=== PATIENT | female | born 1975 | race Caucasian/White ===

== ENCOUNTER 2023-10-09 14:02 | Emergency (ER) | payer SELFPAY ==
[2023-10-09] MEDS: LORazepam 0.5 MG Tab PO ONE (14:52)
== END 2023-10-09 14:55 | disposition home or self-care (01) ==
LOC: CC.ED 14:02
DX: F41.0 Panic disorder [episodic paroxysmal anxiety] (principal); F41.1 Generalized anxiety disorder
CPT/HCPCS: 99283; A9270-GY

== ENCOUNTER 2024-01-29 07:50 | Emergency (ER) | payer SELFPAY ==
[2024-01-29] MEDS: Ketorolac 30 MG/ML SDV ONE (09:08)
[2024-01-29] MEDS: Ketorolac 30 MG/ML SDV IM STA (09:39)
== END 2024-01-29 10:40 | disposition home or self-care (01) ==
LOC: CC.ED 07:50
DX: S83.91XA Sprain of unspecified site of right knee, initial encounter (principal); Z79.899 Other long term (current) drug therapy; W01.0XXA Fall on same level from slipping, tripping and stumbling without subsequent striking against object, initial encounter
CPT/HCPCS: 73562-RT; 96372; 99283; J1885; J3360

== ENCOUNTER 2024-03-07 16:06 | Emergency (ER) | payer SELFPAY ==
[2024-03-07] MEDS: Lidocaine 1% 5 ML VIAL INJECT ONE (16:56)
[2024-03-07] MEDS: Diphtheria,Pertussis(Acell),Tetanus Vaccine 0.5 ML Syringe IM ONE (16:57)
[2024-03-07] MEDS: LORazepam 0.5 MG Tab PO ONE (17:38)
[2024-03-07] MEDS: Ibuprofen 200 MG Tab PO ONE (17:38)
[2024-03-07 18:19] VITALS: BP 141/82; PULSE 86
== END 2024-03-07 18:55 | disposition home or self-care (01) ==
LOC: CC.ED 16:06
DX: S01.81XA Laceration without foreign body of other part of head, initial encounter (principal); Z23 Encounter for immunization; Z88.8 Allergy status to other drugs, medicaments and biological substances; W22.8XXA Striking against or struck by other objects, initial encounter
CPT/HCPCS: 12011; 70450; 90471; 90715; 99283; 99284-25; A9270-GY; J3490

== ENCOUNTER 2024-07-16 22:10 | Emergency (ER) | payer SELFPAY ==
[2024-07-16 22:46] LABS: BASOPHILS ABSOLUTE AUTO 0.04 10^3/uL (0.00-0.50); BASOPHILS PERCENT AUTO 0.7 % (0-1); EOSINOPHILS ABSOLUTE AUTO 0.01 10^3/uL (0.00-1.50); EOSINOPHILS PERCENT AUTO 0.2 % (0-6); HEMATOCRIT 34.3 % (37.0-47.0); HEMOGLOBIN 12.3 g/dL (12.0-16.0); IMMATURE GRAN ABSOLUTE AUTO 0.01 10^3/uL (0.00-0.49); IMMATURE GRAN PERCENT AUTO 0.2 % (0.0-4.9); LYMPHOCYTES ABSOLUTE AUTO 2.08 10^3/uL (0.60-5.00); LYMPHOCYTES PERCENT AUTO 34.9 % (24-44); MEAN CORPUSCULAR HGB CONC 35.9 g/dL (32.0-36.0); MEAN CORPUSCULAR VOLUME 103.3 fL (83.0-97.0); MONOCYTES ABSOLUTE AUTO 0.47 10^3/uL (0.00-1.50); MONOCYTES PERCENT AUTO 7.9 % (0-10); NEUTROPHILS ABSOLUTE AUTO 3.35 x10^3/uL (1.80-8.00); NEUTROPHILS PERCENT AUTO 56.1 % (41-71); PLATELET COUNT,PLT 133 10^3/uL (150-400); RED BLOOD CELL COUNT 3.32 x10^6/uL (4.00-5.50)
[2024-07-16 23:00] LABS: CALCIUM 8.7 mg/dL (8.4-10.1); CREATININE 0.5 mg/dL (0.6-1.0); EST CRCL DRUG DOSING (CG) 124.61 mL/min; POTASSIUM,K 3.2 mEq/L (3.5-5.0)
== END 2024-07-16 23:39 | disposition home or self-care (01) ==
LOC: CC.ED 22:10
DX: S00.03XA Contusion of scalp, initial encounter (principal); F10.120 Alcohol abuse with intoxication, uncomplicated; E03.9 Hypothyroidism, unspecified; N18.9 Chronic kidney disease, unspecified; Z79.899 Other long term (current) drug therapy; Z79.890 Hormone replacement therapy; Y90.8 Blood alcohol level of 240 mg/100 ml or more; Y04.8XXA Assault by other bodily force, initial encounter
CPT/HCPCS: 36415; 70450; 80048; 80307; 85025; 99284

== ENCOUNTER 2024-09-05 16:34 | Observation (INO) | payer MEDICAID ==
[2024-09-05 17:12] LABS: BASOPHILS ABSOLUTE AUTO 0.02 10^3/uL (0.00-0.50); BASOPHILS PERCENT AUTO 0.3 % (0-1); EOSINOPHILS ABSOLUTE AUTO 0.03 10^3/uL (0.00-1.50); EOSINOPHILS PERCENT AUTO 0.5 % (0-6); HEMATOCRIT 33.4 % (37.0-47.0); HEMOGLOBIN 11.3 g/dL (12.0-16.0); IMMATURE GRAN ABSOLUTE AUTO 0.01 10^3/uL (0.00-0.49); IMMATURE GRAN PERCENT AUTO 0.2 % (0.0-4.9); LYMPHOCYTES ABSOLUTE AUTO 1.42 10^3/uL (0.60-5.00); LYMPHOCYTES PERCENT AUTO 22.6 % (24-44); MEAN CORPUSCULAR HEMOGLOBIN 33.7 pg (27.0-32.0); MEAN CORPUSCULAR HGB CONC 33.8 g/dL (32.0-36.0); MEAN CORPUSCULAR VOLUME 99.7 fL (83.0-97.0); MONOCYTES ABSOLUTE AUTO 0.62 10^3/uL (0.00-1.50); MONOCYTES PERCENT AUTO 9.9 % (0-10); NEUTROPHILS ABSOLUTE AUTO 4.17 x10^3/uL (1.80-8.00); NEUTROPHILS PERCENT AUTO 66.5 % (41-71); PLATELET COUNT,PLT 255 10^3/uL (150-400); RED BLOOD CELL COUNT 3.35 x10^6/uL (4.00-5.50); WHITE BLOOD CELL COUNT,WBC 6.3 10^3/uL (4.0-11.0)
[2024-09-05 17:34] LABS: ALBUMIN 2.4 g/dL (3.4-5.0); ALKALINE PHOSPHATASE 311 U/L (46-116); BLOOD UREA NITROGEN,BUN 10 mg/dL (7-18); C-REACTIVE PROTEIN 2.23 mg/dL (<=0.50); CALCIUM 9.7 mg/dL (8.4-10.1); CARBON DIOXIDE,CO2 27 mmol/L (21-32); CHLORIDE,CL 101 mEq/L (98-106); CREATININE 1.2 mg/dL (0.6-1.0); EST CRCL DRUG DOSING (CG) 51.92 mL/min; GLUCOSE RANDOM 106 mg/dL (75-99); POTASSIUM,K 3.6 mEq/L (3.5-5.0); PROTEIN TOTAL,TP 6.1 g/dL (6.4-8.2); SODIUM,NA 139 mEq/L (136-145)
[2024-09-05 17:35] LABS: BILIRUBIN TOTAL 26.4 mg/dL (0.0-1.0); ESTIMATED GFR 55 mL/min (>=60)
[2024-09-05 17:36] LABS: ETHANOL BLOOD MEDICAL < 3 mg/dL (0-3)
[2024-09-05 17:37] LABS: ALANINE AMINOTRANSFERASE,ALT 1881 U/L (12-78); ASPARTATE AMNIOTRANSFERASE,AST 1503 U/L (15-37)
[2024-09-05] MEDS: Iopamidol 755 Mg/ML 100 ML Bottle IVPUSH ONE (17:45)
[2024-09-05] MEDS: Sodium Chloride 0.9% 1,000 ML IV ONE (18:13)
[2024-09-05 18:48] LABS: INR 2.55 (0.92-1.18); PROTHROMBIN TIME 24.8 SEC (9.3-11.3); PTT,PARTIAL THROMBOPLSTIN TIME 41.7 SEC (20.0-30.0)
[2024-09-05] MEDS ORDERED: Ondansetron 4 MG Tab.DIS PO PRN (21:54)
[2024-09-05] MEDS ORDERED: Ondansetron 4 MG/2 ML SDV IV PRN (21:54)
[2024-09-05] MEDS ORDERED: Ibuprofen 200 MG Tab PO PRN (21:54)
[2024-09-05] MEDS: Pantoprazole 40 MG Vial IVPUSH SCH (22:10)
[2024-09-05] MEDS: Sodium Chloride 0.9% 1,000 ML IV SCH (22:11)
[2024-09-06] MEDS: Levothyroxine 100 MCG Tab PO SCH (06:09)
[2024-09-06] MEDS: Levothyroxine 125 MCG Tab PO SCH (06:09)
[2024-09-06 07:34] LABS: BASOPHILS ABSOLUTE AUTO 0.01 10^3/uL (0.00-0.50); BASOPHILS PERCENT AUTO 0.2 % (0-1); EOSINOPHILS ABSOLUTE AUTO 0.06 10^3/uL (0.00-1.50); EOSINOPHILS PERCENT AUTO 1.1 % (0-6); HEMATOCRIT 30.6 % (37.0-47.0); HEMOGLOBIN 10.5 g/dL (12.0-16.0); IMMATURE GRAN ABSOLUTE AUTO 0.01 10^3/uL (0.00-0.49); IMMATURE GRAN PERCENT AUTO 0.2 % (0.0-4.9); LYMPHOCYTES ABSOLUTE AUTO 1.68 10^3/uL (0.60-5.00); LYMPHOCYTES PERCENT AUTO 29.9 % (24-44); MEAN CORPUSCULAR HEMOGLOBIN 34.2 pg (27.0-32.0); MEAN CORPUSCULAR HGB CONC 34.3 g/dL (32.0-36.0); MEAN CORPUSCULAR VOLUME 99.7 fL (83.0-97.0); MONOCYTES ABSOLUTE AUTO 0.64 10^3/uL (0.00-1.50); MONOCYTES PERCENT AUTO 11.4 % (0-10); NEUTROPHILS ABSOLUTE AUTO 3.22 x10^3/uL (1.80-8.00); NEUTROPHILS PERCENT AUTO 57.2 % (41-71); PLATELET COUNT,PLT 231 10^3/uL (150-400); RED BLOOD CELL COUNT 3.07 x10^6/uL (4.00-5.50); WHITE BLOOD CELL COUNT,WBC 5.6 10^3/uL (4.0-11.0)
[2024-09-06] MEDS ORDERED: LEVOTHYROXINE 175 MCG PO SCH (08:00)
[2024-09-06 08:37] LABS: C-REACTIVE PROTEIN 1.84 mg/dL (<=0.50); CALCIUM 9.1 mg/dL (8.4-10.1); CREATININE 0.9 mg/dL (0.6-1.0); EST CRCL DRUG DOSING (CG) 69.23 mL/min; POTASSIUM,K 3.1 mEq/L (3.5-5.0)
[2024-09-06] MEDS: Lactobacillus Rhamnosus GG (Probiotic) Cap PO SCH (08:47)
[2024-09-06] MEDS: Venlafaxine 75 MG Cap.ER PO SCH (08:47)
[2024-09-06] MEDS: buPROPion 100 MG Tab.SR PO SCH (08:47)
[2024-09-06 10:47] LABS: PROTEIN TOTAL,TP 5.5 g/dL (6.4-8.2)
[2024-09-06] MEDS ORDERED: oxyCODONE 5 MG Tab PO PRN (11:39)
[2024-09-06] MEDS: Cefuroxime 250 MG Tab PO ONE (13:23)
[2024-09-06] MEDS: Potassium Chloride 20 MEQ Tab.ER PO ONE (13:24)
[2024-09-06] MEDS ORDERED: Thiamine 100 MG Tab PO SCH (20:00)
[2024-09-06] MEDS ORDERED: Cefuroxime 250 MG Tab PO SCH (20:00)
[2024-09-06] MEDS ORDERED: Multivitamin Tab PO SCH (20:00)
== END 2024-09-06 16:27 | disposition home or self-care (01) ==
LOC: CC.ED 16:34 → UNDOADMOB 20:15 → CC.MS 20:15
PROVIDERS: ADMIT Physician Assistant Medical; ATTEND Physician Assistant Medical
DX: K70.10 Alcoholic hepatitis without ascites (principal); N18.9 Chronic kidney disease, unspecified; E03.9 Hypothyroidism, unspecified; F32.A Depression, unspecified; Z79.890 Hormone replacement therapy; Z79.899 Other long term (current) drug therapy
CPT/HCPCS: 36415; 74177; 76705; 80053; 80074; 80307; 82140; 85025; 85610; 85730; 86140; 96360; 96361; 96374; 99223; 99239; 99285-25; A9270-GY; G0378; J2470; J7030; Q9967

== ENCOUNTER 2024-09-08 13:12 | Emergency (ER) | payer MEDICAID ==
[2024-09-08 13:48] LABS: BASOPHILS ABSOLUTE AUTO 0.02 10^3/uL (0.00-0.50); BASOPHILS PERCENT AUTO 0.2 % (0-1); EOSINOPHILS ABSOLUTE AUTO 0.05 10^3/uL (0.00-1.50); EOSINOPHILS PERCENT AUTO 0.6 % (0-6); HEMATOCRIT 32.6 % (37.0-47.0); HEMOGLOBIN 11.3 g/dL (12.0-16.0); IMMATURE GRAN ABSOLUTE AUTO 0.02 10^3/uL (0.00-0.49); IMMATURE GRAN PERCENT AUTO 0.2 % (0.0-4.9); LYMPHOCYTES ABSOLUTE AUTO 1.95 10^3/uL (0.60-5.00); LYMPHOCYTES PERCENT AUTO 22.5 % (24-44); MEAN CORPUSCULAR HEMOGLOBIN 34.1 pg (27.0-32.0); MEAN CORPUSCULAR HGB CONC 34.7 g/dL (32.0-36.0); MEAN CORPUSCULAR VOLUME 98.5 fL (83.0-97.0); MONOCYTES ABSOLUTE AUTO 0.88 10^3/uL (0.00-1.50); MONOCYTES PERCENT AUTO 10.1 % (0-10); NEUTROPHILS ABSOLUTE AUTO 5.76 x10^3/uL (1.80-8.00); NEUTROPHILS PERCENT AUTO 66.4 % (41-71); PLATELET COUNT,PLT 220 10^3/uL (150-400); RED BLOOD CELL COUNT 3.31 x10^6/uL (4.00-5.50); WHITE BLOOD CELL COUNT,WBC 8.7 10^3/uL (4.0-11.0)
[2024-09-08 14:02] LABS: APPEARANCE,URINE SLIGHTLY CLOUDY (CLEAR); BILIRUBIN,URINE LARGE (NEGATIVE); COLOR,URINE AMBER (YELLOW); GLUCOSE,URINE 100 mg/dL (NEGATIVE); KETONES,URINE 15 mg/dL (NEGATIVE); LEUKOCYTE ESTERASE,URINE NEGATIVE (NEGATIVE); NITRITE,URINE NEGATIVE (NEGATIVE); OCCULT BLOOD,URINE TRACE-INTACT (NEGATIVE); PH,URINE 5.5 (4.5-8.0); PROTEIN,URINE 30 mg/dL (NEGATIVE)
[2024-09-08 14:09] LABS: AMPHETAMINES,URINE NEGATIVE (NEGATIVE); BARBITURATES,URINE NEGATIVE (NEGATIVE); BENZODIAZEPINE,URINE NEGATIVE (NEGATIVE); MDMA (ECSTASY), URINE NEGATIVE (NEGATIVE); METHADONE,URINE NEGATIVE (NEGATIVE); METHAMPHETAMINES,URINE NEGATIVE (NEGATIVE); OPIATES,URINE NEGATIVE (NEGATIVE); OXYCODONE,URINE NEGATIVE (NEGATIVE); PHENCYCLIDINE,URINE NEGATIVE (NEGATIVE); TCA,URINE NEGATIVE (NEGATIVE)
[2024-09-08 14:13] LABS: BACTERIA,URINE FEW /HPF (NOT SEEN); EPITHELIAL CELLS,URINE MANY /HPF (NOT SEEN); RBC,URINE 0-5 /HPF (0-5); WBC,URINE 0-5 /HPF (0-5)
[2024-09-08 14:13] LABS: ALBUMIN 2.5 g/dL (3.4-5.0); ALKALINE PHOSPHATASE 283 U/L (46-116); BILIRUBIN TOTAL 29.2 mg/dL (0.0-1.0); BLOOD UREA NITROGEN,BUN 17 mg/dL (7-18); CALCIUM 10.2 mg/dL (8.4-10.1); CARBON DIOXIDE,CO2 23 mmol/L (21-32); CHLORIDE,CL 98 mEq/L (98-106); CREATININE 1.9 mg/dL (0.6-1.0); EST CRCL DRUG DOSING (CG) 32.79 mL/min; ESTIMATED GFR 32 mL/min (>=60); ETHANOL BLOOD MEDICAL < 3 mg/dL (0-3); GLUCOSE RANDOM 60 mg/dL (75-99); LIPASE 111 U/L (16-77); MAGNESIUM 1.5 mg/dL (1.8-2.4); POTASSIUM,K 4.1 mEq/L (3.5-5.0); PROTEIN TOTAL,TP 6.5 g/dL (6.4-8.2); SODIUM,NA 133 mEq/L (136-145)
[2024-09-08 14:14] LABS: ALANINE AMINOTRANSFERASE,ALT 1316 U/L (12-78); ASPARTATE AMNIOTRANSFERASE,AST 939 U/L (15-37)
[2024-09-08 14:15] LABS: PROTHROMBIN TIME > 100.0 SEC (9.3-11.3)
[2024-09-08 14:16] LABS: INR > 10.00 (0.92-1.18)
[2024-09-08] MEDS: Sodium Chloride 0.9% 1,000 ML IV ONE (14:26)
[2024-09-08] MEDS: 50% Dextrose in Water 50 ML Syringe IVPUSH ONE (14:40)
[2024-09-08] MEDS: Magnesium Sulfate 2 GM/50 mL 2 GM in Premix Bag 1 BAG IV ONE (14:52)
[2024-09-08] MEDS: Magnesium Sulfate 2 GM/50 mL 50 ML ONE (16:38)
[2024-09-08] MEDS: Phytonadione 5 MG Tab PO ONE (18:16)
== END 2024-09-09 02:17 ==
LOC: CC.ED 13:12
DX: K76.82 Hepatic encephalopathy (principal); K72.00 Acute and subacute hepatic failure without coma; N18.9 Chronic kidney disease, unspecified; E03.9 Hypothyroidism, unspecified; Z79.899 Other long term (current) drug therapy; Z79.890 Hormone replacement therapy
CPT/HCPCS: 36415; 70450; 80053; 80305-QW; 80307; 81001; 82140; 82947; 83605; 83690; 83735; 85025; 85610; 96361; 96365; 96366; 96375; 99285-25; A9270-GY; J3475; J7030